=== PATIENT | male | born 1980 | race Caucasian/White ===

== ENCOUNTER 2019-04-20 13:09 | Emergency (ER) | payer OTHER ==
[~2019-04-20] VITALS: Ht 175.3 cm; Wt 81.6 kg
[2019-04-20 16:30] VITALS: BP 145/81
[2019-04-20] MEDS ORDERED: TETANUS-DIPTH-ACEL PERTUSSIS 0.5ML SYRG IM ONE (17:00)
[2019-04-20] MEDS ORDERED: cefTRIAXone SOD 1,000 MG VL IM ONE (17:00)
[2019-04-20] MEDS ORDERED: cefTRIAXone SOD 1,000 MG VL ONE (17:01)
[2019-04-20] MEDS ORDERED: LIDOCAINE 1% HCL (LOCAL ANESTH.) INJ 20ML MDV ONE (17:01)
== END 2019-04-20 17:18 | disposition home or self-care (01) ==
LOC: ER 13:09
DX: S61.213A Laceration without foreign body of left middle finger without damage to nail, initial encounter (principal); S69.92XA Unspecified injury of left wrist, hand and finger(s), initial encounter; Z91.041 Radiographic dye allergy status; W23.1XXA Caught, crushed, jammed, or pinched between stationary objects, initial encounter; Y93.89 Activity, other specified; Y92.098 Other place in other non-institutional residence as the place of occurrence of the external cause
CPT/HCPCS: 12002; 73130; 90471; 90715; 96372; 99283; J0696; J2001

== ENCOUNTER → 2025-06-03 | Outpatient (CLI) | payer BC ==
[2025-06-03 11:47] LABS: Alanine Aminotransferase 28 U/L (7-40); Albumin 4.7 g/dL (3.2-4.8); Alkaline Phosphatase 70 U/L (46-116); Anion Gap 6 (5-15); BUN/Creatinine Ratio 15.5 (10.0-20.0); Bilirubin, Total 0.8 mg/dL (0.2-1.0); Blood Urea Nitrogen 18 mg/dL (9-23); Calcium 10.3 mg/dL (8.7-10.4); Carbon Dioxide 29 mmol/L (20-31); Chloride 106 mmol/L (98-107); Glucose 94 mg/dL (74-106); HDL Cholesterol 58 mg/dL (40-59); Potassium 5.0 mmol/L (3.5-5.1); Sodium 141 mmol/L (136-145); Total Protein 7.0 g/dL (5.7-8.2)
[2025-06-03 11:49] LABS: Cholesterol 237 mg/dL (< 200); Triglycerides 204 mg/dL (< 150)
[2025-06-03 12:11] LABS: Hematocrit 46.8 % (41.0-53.0); Hemoglobin 16.6 g/dL (13.5-17.5); Mean Corpuscular Hemoglobin 32.4 pg (28.0-32.0); Mean Corpuscular Volume 91.5 fL (80.0-100.0); Nucleated Red Blood Cells % 0.1 %
[2025-06-04 11:13] LABS: Hepatitis A Total Antibody Positive (Negative); Hepatitis B Surface Antigen Negative (Negative); Hepatitis C Antibody Negative (Negative)
== END | disposition home or self-care (01) ==
LOC: LAB 11:06
PROVIDERS: ATTEND Licensed Practical Nurse
DX: I10 Essential (primary) hypertension (principal); Z13.220 Encounter for screening for lipoid disorders; Z13.1 Encounter for screening for diabetes mellitus; Z13.29 Encounter for screening for other suspected endocrine disorder; Z13.6 Encounter for screening for cardiovascular disorders; Z00.01 Encounter for general adult medical examination with abnormal findings
CPT/HCPCS: 36415; 80053; 80061; 82043; 82306; 83036; 84443; 85025; 86704; 86706; 86708; 86803; 87340

== ENCOUNTER 2025-08-06 14:19 | Outpatient (CLI) | payer BC ==
[~2025-08-06] VITALS: Ht 175.3 cm; Wt 86.2 kg
== END 2025-08-07 17:00 | disposition home or self-care (01) ==
LOC: Rad HDHVI 14:19
PROVIDERS: ATTEND Internal Medicine Cardiovascular Disease
DX: Z01.810 Encounter for preprocedural cardiovascular examination (principal); I12.9 Hypertensive chronic kidney disease with stage 1 through stage 4 chronic kidney disease, or unspecified chronic kidney disease; N18.2 Chronic kidney disease, stage 2 (mild); R00.0 Tachycardia, unspecified; R94.31 Abnormal electrocardiogram [ECG] [EKG]; E78.2 Mixed hyperlipidemia
CPT/HCPCS: 78452; 93017; A9500; 96374